=== PATIENT | male | born 1940 ===

== ENCOUNTER 2016-07-02 12:50 | Emergency (ER) | payer MEDICARE, BC, OTHER ==
[2016-07-02 13:34] LABS: BASOPHILS % (AUTO) 1 % (0-3); EOSINOPHILS % (AUTO) 0 % (0-9); HEMATOCRIT 42 % (39-53); MEAN CORPUSCULAR HGB CONC 34.4 gm/dl (32.0-36.0); MEAN CORPUSCULAR VOLUME 88 fL (80-100); MONOCYTES % (AUTO) 8.2 % (0-12); NEUTROPHILS % (AUTO) 74.5 % (37-80)
[2016-07-02 13:42] VITALS: TEMP 100.6; O2SAT 97
[2016-07-02 13:46] LABS: ALBUMIN 3.6 gm/dl (3.4-5.0); CALCIUM 8.6 mg/dl (8.5-10.1); POTASSIUM 4.2 mMol/L (3.5-5.1)
[2016-07-02 16:55] VITALS: RESP 18
[2016-07-02 16:57] VITALS: BP 160/72; PULSE 75
== END 2016-07-02 16:50 | disposition home or self-care (01) | DRG 948 ==
LOC: ED 12:50
DX: R41.0 Disorientation, unspecified (principal); R51 Headache; R29.702 NIHSS score 2
CPT/HCPCS: 36415; 70450; 70544; 70551; 80053; 85025; 99284; 99285